=== PATIENT | male | born 1950 | race Caucasian/White ===

== ENCOUNTER 2017-12-29 21:16 | Inpatient (IN) | payer OTHER ==
[~2017-12-29] VITALS: Ht 170.2 cm; Wt 103.6 kg
[~2017-12-29 21:16] MED LIST: AMLO5 PO; ASPI325 PO; CETI10 PO; CLOP75 PO; Cleocin HCl150 MG PO; DIPH50 PO; IBUP400 PO; INSULANI SC; INSULANPEN SQ; LOSHYD100 PO; METO50 PO; NYST100SU SS; OXYACE5T PO; PIOG15 PO; PRED10 PO; SULF10OPSA OD
[2017-12-29] MEDS ORDERED: BASAGLAR K100 UNIT/1 SC (21:23)
[2017-12-29 21:46] LABS: BASOPHILS ABSOLUTE AUTO 0.09 K/mm3 (0.00-0.23); BASOPHILS PERCENT AUTO 1 % (0-2); EOSINOPHILS ABSOLUTE AUTO 0.18 K/mm3 (0.00-0.68); EOSINOPHILS PERCENT AUTO 2 % (0-6); Hematocrit 46.7 % (37.0-53.0); Hemoglobin 16.4 g/dL (13.5-17.5); IMMATURE GRAN ABSOLUTE AUTO 0.04 K/mm3 (0.00-0.10); IMMATURE GRAN PERCENT AUTO 0 % (0-1); LYMPHOCYTES ABSOLUTE AUTO 3.36 K/mm3 (0.84-5.20); LYMPHOCYTES PERCENT AUTO 33 % (21-46); MONOCYTES ABSOLUTE AUTO 1.46 K/mm3 (0.16-1.47); MONOCYTES PERCENT AUTO 14 % (4-13); Mean Corpuscular HGB 31.7 pg (26.0-34.0); Mean Corpuscular HGB Conc 35.1 g/dL (31.5-36.5); Mean Corpuscular Volume 90 fL (80-100); Mean Platelet Volume 11.2 fL (9.1-12.4); NEUTROPHILS ABSOLUTE AUTO 5.13 K/mm3 (1.96-9.15); NEUTROPHILS PERCENT AUTO 50 % (41-73); Platelet Count 242 K/mm3 (150-400); RDW Coefficient Variation 12.9 % (11.7-14.2); RDW Standard Deviation 42.9 fL (35.1-46.3); Red Blood Cell Count 5.17 M/mm3 (4.30-5.90); White Blood Cell Count 10.26 K/mm3 (4.00-11.30)
[2017-12-29 21:55] LABS: Calcium, Ionized (POC) 0.96 mmol/L (1.10-1.46); Chloride (POC) 95 mmol/L (98-108); Glucose (ISTAT POC) 223 mg/dL (70-99); Hemoglobin (POC) 15.6 g/dL (13.5-17.5); Sodium (POC) 146 mmol/L (135-148); Total CO2 (POC) 38 mmol/L (21-32)
[2017-12-29 22:08] LABS: Alanine Aminotransfer (ALT/SGP 36 U/L (12-78); Albumin, Blood 3.1 g/dL (3.4-5.0); Albumin/Globulin Ratio 0.8 (0.8-1.8); Alk Phos 65 U/L (50-136); Anion Gap 7 mmol/L (6-16); Aspartate Aminotrans (AST/SGOT 17 U/L (12-37); Bilirubin, Total 0.4 mg/dL (0.1-1.0); Blood Urea Nitrogen 17 mg/dL (8-24); Bun/Creatinine Ratio 21.4 (12.0-20.0); CO2, Blood 36 mmol/L (21-32); Calcium, Blood 8.3 mg/dL (8.5-10.1); Chloride, Blood 101 mmol/L (98-108); Globulin, Blood 3.9 g/dL (2.2-4.0); Glomerular Filtration Rate >60 (60-); Glucose, Blood 222 mg/dL (70-99); Potassium, Blood 3.2 mmol/L (3.5-5.5); Sodium, Blood 144 mmol/L (136-145); Troponin I 0.178 ng/mL (0.000-0.040)
[2017-12-29 22:26] LABS: International Normalized Ratio 0.96
[2017-12-29] MEDS ORDERED: ASPI81CH PO (23:54)
[2017-12-30 00:57] LABS: Source, Urine Clean Catch
[2017-12-30 01:01] LABS: Bilirubin, Urine Neg (Neg); Blood, Urine Neg (Neg); Glucose Qualitative, Urine 2+ (Neg); Ketones, Urine Neg (Neg); Leukocyte Esterase, Urine Neg (Neg); Nitrite, Urine Neg (Neg); Protein, Urine 3+ (Neg); Specific Gravity, Urine 1.015 (1.003-1.022); Urobilinogen, Urine NORM (Normal)
[2017-12-30 01:45] LABS: Appearance, Urine Clear (Clear); Color, Urine Pale Yellow (P-Yellow)
[2017-12-30 01:46] LABS: Bacteria Not Seen /hpf; Red Blood Cells, Urine 0-2 /hpf (0-2); Squamous Epithelial Cells Not Seen /hpf (Few); White Blood Cells, Urine 0-2 /hpf (0-5)
[2017-12-30 02:26] LABS: Hematocrit 45.3 % (37.0-53.0); Hemoglobin 15.8 g/dL (13.5-17.5); Mean Corpuscular HGB 31.4 pg (26.0-34.0); Mean Corpuscular HGB Conc 34.9 g/dL (31.5-36.5); Mean Corpuscular Volume 90 fL (80-100); Mean Platelet Volume 11.1 fL (9.1-12.4); Platelet Count 223 K/mm3 (150-400); RDW Standard Deviation 42.9 fL (35.1-46.3); Red Blood Cell Count 5.03 M/mm3 (4.30-5.90); White Blood Cell Count 12.66 K/mm3 (4.00-11.30)
[2017-12-30 02:46] LABS: Anion Gap 5 mmol/L (6-16); Blood Urea Nitrogen 14 mg/dL (8-24); Bun/Creatinine Ratio 16.9 (12.0-20.0); CHOL/HDL RATIO 3.4; CO2, Blood 35 mmol/L (21-32); CPK Creatine Kinase 202 U/L (39-308); Calcium, Blood 7.9 mg/dL (8.5-10.1); Chloride, Blood 105 mmol/L (98-108); Cholesterol 148 mg/dL (50-200); Creatine Kinase MB 23.1 ng/mL (0.0-3.6); Creatine Kinase MB Index 11.4 (0.0-4.0); Creatinine, Blood 0.83 mg/dL (0.60-1.20); Glomerular Filtration Rate >60 (60-); Glucose, Blood 112 mg/dL (70-99); HDL Cholesterol 44 mg/dL (>39); LDL/HDL RATIO 1.6; Low Density Lipoprotein Chol 69 mg/dL (0-110); Potassium, Blood 2.9 mmol/L (3.5-5.5); Sodium, Blood 145 mmol/L (136-145); Triglycerides 173 mg/dL (30-160); Very Low Density Lipoprot Chol 34 mg/dL (6-32)
[2017-12-30] MEDS ORDERED: ATOR40TA PO (10:46)
[2017-12-30] MEDS ORDERED: LISI20 PO (10:47)
[2017-12-30] MEDS ORDERED: METO25 PO (10:48)
[2017-12-30] MEDS ORDERED: Micro-K10 MEQ PO (10:49)
[2017-12-30] MEDS ORDERED: TICA90TA PO (10:50)
[2017-12-30] MEDS ORDERED: NITR.4SL SL (10:51)
== END 2017-12-30 10:40 | disposition home or self-care (01) | DRG 247 ==
LOC: ER 21:16 → ICUW 22:10
PROVIDERS: Emergency Medicine; Internal Medicine Cardiovascular Disease
PROC: 027034Z Dilation of Coronary Artery, One Artery with Drug-eluting Intraluminal Device, Percutaneous Approach (ICD-10-PCS; principal; 2017-12-29)
PROC: 4A023N7 Measurement of Cardiac Sampling and Pressure, Left Heart, Percutaneous Approach (ICD-10-PCS; 2017-12-29)
PROC: B2151ZZ Fluoroscopy of Left Heart using Low Osmolar Contrast (ICD-10-PCS; 2017-12-29)
PROC: B2111ZZ Fluoroscopy of Multiple Coronary Arteries using Low Osmolar Contrast (ICD-10-PCS; 2017-12-29)
DX: I21.09 ST elevation (STEMI) myocardial infarction involving other coronary artery of anterior wall (principal); D64.9 Anemia, unspecified; E11.9 Type 2 diabetes mellitus without complications; F17.210 Nicotine dependence, cigarettes, uncomplicated; E87.6 Hypokalemia; I10 Essential (primary) hypertension; Z79.4 Long term (current) use of insulin; Z79.82 Long term (current) use of aspirin; Z88.5 Allergy status to narcotic agent; Z88.0 Allergy status to penicillin
CPT/HCPCS: 36415; 71045; 80047; 80048; 80053; 80061; 81001; 82330; 82550; 82553; 82947; 83036; 83690; 84484; 85014; 85025; 85027; 85347; 85610; 85730; 93005; 93010; 93306; 93454; 99152; 99153; 99285; C1725; C1769; C1874; C9606; J0360; J0610; J1644; J1650; J1815; J2001; J2250; J3010; J3480; J7030; Q9957; Q9967

== ENCOUNTER 2018-01-02 08:19 | Inpatient (IN) | payer OTHER ==
[~2018-01-02] VITALS: Ht 172.7 cm; Wt 103.7 kg
[~2018-01-02 08:19] MED LIST changes: +ASPI81CH PO; +ATOR40TA PO; +BASAGLAR K100 UNIT/1 SC; +LISI20 PO; +METO25 PO; +Micro-K10 MEQ PO; +NITR.4SL SL; +TICA90TA PO
[2018-01-02 08:46] LABS: BASOPHILS ABSOLUTE AUTO 0.07 K/mm3 (0.00-0.23); BASOPHILS PERCENT AUTO 1 % (0-2); EOSINOPHILS ABSOLUTE AUTO 0.31 K/mm3 (0.00-0.68); EOSINOPHILS PERCENT AUTO 2 % (0-6); Hematocrit 48.1 % (37.0-53.0); Hemoglobin 16.9 g/dL (13.5-17.5); IMMATURE GRAN PERCENT AUTO 1 % (0-1); LYMPHOCYTES ABSOLUTE AUTO 1.58 K/mm3 (0.84-5.20); LYMPHOCYTES PERCENT AUTO 11 % (21-46); MONOCYTES ABSOLUTE AUTO 1.66 K/mm3 (0.16-1.47); MONOCYTES PERCENT AUTO 11 % (4-13); Mean Corpuscular HGB 31.8 pg (26.0-34.0); Mean Corpuscular HGB Conc 35.1 g/dL (31.5-36.5); Mean Corpuscular Volume 91 fL (80-100); Mean Platelet Volume 11.6 fL (9.1-12.4); NEUTROPHILS ABSOLUTE AUTO 11.11 K/mm3 (1.96-9.15); NEUTROPHILS PERCENT AUTO 75 % (41-73); Platelet Count 240 K/mm3 (150-400); RDW Coefficient Variation 13.1 % (11.7-14.2); RDW Standard Deviation 43.3 fL (35.1-46.3); Red Blood Cell Count 5.31 M/mm3 (4.30-5.90); White Blood Cell Count 14.83 K/mm3 (4.00-11.30)
[2018-01-02 09:00] LABS: International Normalized Ratio 0.99; Prothrombin Time Results 10.3 Sec (9.7-11.5)
[2018-01-02 09:05] LABS: Alanine Aminotransfer (ALT/SGP 31 U/L (12-78); Albumin/Globulin Ratio 0.7 (0.8-1.8); Alk Phos 68 U/L (50-136); Anion Gap 7 mmol/L (6-16); Aspartate Aminotrans (AST/SGOT 18 U/L (12-37); Bilirubin, Total 0.7 mg/dL (0.1-1.0); Blood Urea Nitrogen 15 mg/dL (8-24); CO2, Blood 28 mmol/L (21-32); Calcium, Blood 9.1 mg/dL (8.5-10.1); Chloride, Blood 109 mmol/L (98-108); Creatinine, Blood 1.07 mg/dL (0.60-1.20); Globulin, Blood 4.1 g/dL (2.2-4.0); Glomerular Filtration Rate >60 (60-); Glucose, Blood 146 mg/dL (70-99); Potassium, Blood 3.9 mmol/L (3.5-5.5); Sodium, Blood 144 mmol/L (136-145); Total Protein, Blood 7.1 g/dL (6.4-8.2)
[2018-01-03 04:17] LABS: BASOPHILS ABSOLUTE AUTO 0.05 K/mm3 (0.00-0.23); BASOPHILS PERCENT AUTO 0 % (0-2); EOSINOPHILS ABSOLUTE AUTO 0.21 K/mm3 (0.00-0.68); EOSINOPHILS PERCENT AUTO 2 % (0-6); Hematocrit 40.1 % (37.0-53.0); Hemoglobin 13.7 g/dL (13.5-17.5); IMMATURE GRAN ABSOLUTE AUTO 0.07 K/mm3 (0.00-0.10); IMMATURE GRAN PERCENT AUTO 1 % (0-1); LYMPHOCYTES ABSOLUTE AUTO 2.05 K/mm3 (0.84-5.20); LYMPHOCYTES PERCENT AUTO 17 % (21-46); MONOCYTES ABSOLUTE AUTO 1.91 K/mm3 (0.16-1.47); MONOCYTES PERCENT AUTO 16 % (4-13); Mean Corpuscular HGB 31.4 pg (26.0-34.0); Mean Corpuscular HGB Conc 34.2 g/dL (31.5-36.5); Mean Corpuscular Volume 92 fL (80-100); Mean Platelet Volume 11.9 fL (9.1-12.4); NEUTROPHILS ABSOLUTE AUTO 7.83 K/mm3 (1.96-9.15); NEUTROPHILS PERCENT AUTO 65 % (41-73); Platelet Count 227 K/mm3 (150-400); RDW Coefficient Variation 13.1 % (11.7-14.2); RDW Standard Deviation 44.1 fL (35.1-46.3); Red Blood Cell Count 4.36 M/mm3 (4.30-5.90); White Blood Cell Count 12.12 K/mm3 (4.00-11.30)
[2018-01-03 04:48] LABS: Anion Gap 9 mmol/L (6-16); Blood Urea Nitrogen 14 mg/dL (8-24); Bun/Creatinine Ratio 16.5 (12.0-20.0); CO2, Blood 24 mmol/L (21-32); Calcium, Blood 7.7 mg/dL (8.5-10.1); Chloride, Blood 108 mmol/L (98-108); Creatinine, Blood 0.85 mg/dL (0.60-1.20); Glomerular Filtration Rate >60 (60-); Glucose, Blood 107 mg/dL (70-99); Potassium, Blood 3.5 mmol/L (3.5-5.5); Sodium, Blood 141 mmol/L (136-145)
[2018-01-04] MEDS ORDERED: ASPI325 PO (08:11)
[2018-01-04] MEDS ORDERED: CLOP75 PO (08:11)
== END 2018-01-04 08:31 | disposition home or self-care (01) | DRG 246 ==
LOC: ER 08:19 → ICUW 08:53 → ICUE 08:53 → PCU 01-03 16:52
PROVIDERS: Emergency Medicine; Internal Medicine Interventional Cardiology
PROC: 027034Z Dilation of Coronary Artery, One Artery with Drug-eluting Intraluminal Device, Percutaneous Approach (ICD-10-PCS; principal; 2018-01-02)
PROC: 02703ZZ Dilation of Coronary Artery, One Artery, Percutaneous Approach (ICD-10-PCS; principal; 2018-01-02)
PROC: 4A023N7 Measurement of Cardiac Sampling and Pressure, Left Heart, Percutaneous Approach (ICD-10-PCS; principal; 2018-01-02)
DX: T82.855A Stenosis of coronary artery stent, initial encounter (principal); I21.09 ST elevation (STEMI) myocardial infarction involving other coronary artery of anterior wall; I22.0 Subsequent ST elevation (STEMI) myocardial infarction of anterior wall; F17.210 Nicotine dependence, cigarettes, uncomplicated; I25.10 Atherosclerotic heart disease of native coronary artery without angina pectoris; Z91.19 Patient's noncompliance with other medical treatment and regimen; E11.9 Type 2 diabetes mellitus without complications; I10 Essential (primary) hypertension; E78.5 Hyperlipidemia, unspecified; Z79.4 Long term (current) use of insulin; Z88.0 Allergy status to penicillin
CPT/HCPCS: 36415; 80048; 80053; 82947; 83880; 84484; 85025; 85347; 85610; 92941; 92978; 93005; 93010; 93458; 96374; 99152; 99153; 99285; C1725; C1753; C1769; C1874; C1887; C1894; C8929; C9600; J1644; J1815; J2250; J2405; J3010; J3246; J7030; Q9957; Q9967

== ENCOUNTER 2019-01-13 05:46 | Inpatient (IN) | payer OTHER ==
[~2019-01-13] VITALS: Ht 170.2 cm; Wt 102.9 kg
[2019-01-13 06:11] LABS: BASOPHILS ABSOLUTE AUTO 0.06 K/mm3 (0.00-0.23); BASOPHILS PERCENT AUTO 0 % (0-2); EOSINOPHILS ABSOLUTE AUTO 0.03 K/mm3 (0.00-0.68); EOSINOPHILS PERCENT AUTO 0 % (0-6); Hemoglobin 15.3 g/dL (13.5-17.5); IMMATURE GRAN ABSOLUTE AUTO 0.43 K/mm3 (0.00-0.10); IMMATURE GRAN PERCENT AUTO 2 % (0-1); LYMPHOCYTES ABSOLUTE AUTO 0.64 K/mm3 (0.84-5.20); LYMPHOCYTES PERCENT AUTO 3 % (21-46); MONOCYTES PERCENT AUTO 13 % (4-13); Mean Corpuscular HGB 31.7 pg (26.0-34.0); Mean Corpuscular HGB Conc 34.8 g/dL (31.5-36.5); Mean Corpuscular Volume 91 fL (80-100); Mean Platelet Volume 11.7 fL (9.1-12.4); NEUTROPHILS ABSOLUTE AUTO 17.14 K/mm3 (1.96-9.15); NEUTROPHILS PERCENT AUTO 82 % (41-73); Platelet Count 196 K/mm3 (150-400); RDW Coefficient Variation 12.9 % (11.7-14.2); Red Blood Cell Count 4.83 M/mm3 (4.30-5.90)
[2019-01-13 06:25] LABS: Albumin, Blood 2.4 g/dL (3.4-5.0); Albumin/Globulin Ratio 0.6 (0.8-1.8); Bilirubin, Total 0.9 mg/dL (0.1-1.0); Bun/Creatinine Ratio 12.3 (12.0-20.0); Calcium, Blood 8.4 mg/dL (8.5-10.1); Creatinine, Blood 1.54 mg/dL (0.60-1.20); Globulin, Blood 4.1 g/dL (2.2-4.0); Potassium, Blood 3.9 mmol/L (3.5-5.5); Total Protein, Blood 6.5 g/dL (6.4-8.2); Troponin I 0.087 ng/mL (0.000-0.040)
[2019-01-13] MEDS ORDERED: INSULANPEN (07:18)
[2019-01-13] MEDS ORDERED: ATOR40TA PO (07:18)
[2019-01-13 07:53] LABS: Influenza A Negative (NEGATIVE); Influenza B Negative (NEGATIVE)
--- NOTE | 2019-01-13 14:08 | NUR ---
Permission to access Patient gave this student RN permission to access chart.
--- NOTE | 2019-01-13 18:22 | NUR ---
AT 1500 PATIENT PRESENTED WITH SYMPTOMS OF LOWERED OXYGEN SATURATION AND HIS RESPIRATORY RATE WAS IN THE 30S. PATIENT WAS ASSESSED, LUNGS WERE TIGHT. PATIENT WAS ASSESSED BY RESPIRATORY THERAPY. BREATHING TREATMENT WAS GIVEN TO THE PATIENT AND HE BECAME WHEEZY. PATIENT HAD LACTIC REFLUX DRAWN AND STAT TROPONIN. TROPONIN AND LACTIC CAME BACK ELEVATED AT A CRITICAL HIGH. TROPONIN WAS 3.68 AND LACTIC WAS STILL 3.0 AFTER 5L BOLUSED FLUIDS. PATIENT CONTINUED TO HAVE A RESPIRATION RATE IN THE 40S AND DR. CASAS WAS AGAIN NOTIFIED OF THE PATIENTS CONDITION. HE ORDERED A BIPAP TO REDUCE PATIENTS WORK OF BREATHING, AND A TRANSFER TO PCU. PATIENT WAS GIVEN ICU BED THAT WAS WHAT WAS AVAILABLE. HE WAS ON THE BIPAP AND KEPT HIS SATURATIONS AROUND 96%. WHEN THE BIPAP WAS REMOVED FOR TRANSFER, BEFORE WE COULD PLACE THE NASAL CANNULA THE PATIENTS SATURATIONS DROPPED TO 93%. HE WAS PLACED ON 3L NASAL CANNULA FOR TRANSFER. REPORT HAD BEEN CALLED OT JUANY POPE RN, PATIENT TRANSFERRED BY FRIDA MARIE AND TRUDY CRANE RN. PATIENT SETTLED IN ICU.
--- NOTE | 2019-01-13 19:30 | NUR ---
ARRIVAL NOTE/SUMMARY: PT ARRIVED VIA BED. PT'S FACE IS FLUSHED. RR-40'S RANGE AND LABORED. 02 SATS MID 90% RANGE ON 2L 02 VIA N/C. PT IS ALERT AND ORIENTED, BUT APPEARS GENERALLY UNWELL. PT STATES, "I DON'T KNOW HOW I GOT SO SICK." PT ABLE TO ASSIST WITH SIMPLE TASKS IN BED BUT BECOMES VERY EASILY MORE DYSPNEIC WITH EXERTION. LUNGS ARE CLEAR BUT DIMINISHED IN THE BILATERAL BASES. WET, OCASSIONALLY PRODUCTIVE COUGH. PT SWALLOWS SPUTUM BUT REPORTS IT HAS BEEN YELLOW IN COLOR. HR REGULAR, ST 100-110'S RANGE. BP STABLE AT THIS TIME. TEMP -99.0. KERMIT YATES REPORTS THAT PT HAS CHRONIC DIARRHEA. NO BM AT THIS TIME. -CONTINUE TO FOLLOW TROPONIN, REVIEW HEPARIN RN NOTIFY IF TROPONIN IS >6. -FULL CODE STATUS -PCU STATUS
--- NOTE | 2019-01-13 19:44 | NUR ---
BEDSIDE REPORT FROM JUANY CARMEN. PT A+O, LS RHONCHI C/ EXP WHEEZ TO RUL AND RML. PT ABLE TO RELIEVE SOME RHONCHI WITH COUGH. SKIN FLUSHED AND WARM. PT WITH TACHYPNEA BUT IS ABLE TO TALK FULL SENTENCES. PT STATES HAS BEEN SICK FOR 72 HOURS AND JUST WANTS TO SLEEP, HOWEVER, IS ENJOYING TELLING STORIES ABOUT HIS LIFE WITH HIS DAD AND LIVING IN [place]. GIVING PT TIME TO TALK. OTHERWISE PT PLEASANT AND COOPERATIVE. PT STATES WILL NOT WEAR ANY MASK TONIGHT BUT WILLING TO WEAR NASAL CANULA. WILL CONTINUE TO MONITOR. CALL LIGHT WITHIN REACH.
--- NOTE | 2019-01-14 03:00 | NUR ---
PT CALM AND COOPERATIVE T/O SHIFT. PT INITIALLY REFUSED BREATHING TREATMENT AND SOLU-MEDROL BUT AFTER DEVELOPING INCREASED SOB AND EXP WHEEZE WHEN UP TO BEDSIDE COMMODE, PT AGREED TO TAKE MEDICATION AND TREATMENT. PT CURRENTLY RESTING QUIETLY WITH LESS EFFORT IN BREATHING AND NO AUDIBLE WHEEZING NOTED, SATS 93-97%. PT AWAKENS EASILY TO RN AT BEDSIDE. USES CALL LIGHT APPROPRIATELY.
[2019-01-14 04:21] LABS: BASOPHILS ABSOLUTE AUTO 0.08 K/mm3 (0.00-0.23); BASOPHILS PERCENT AUTO 0 % (0-2); EOSINOPHILS ABSOLUTE AUTO 0.08 K/mm3 (0.00-0.68); EOSINOPHILS PERCENT AUTO 0 % (0-6); IMMATURE GRAN ABSOLUTE AUTO 0.63 K/mm3 (0.00-0.10); IMMATURE GRAN PERCENT AUTO 3 % (0-1); LYMPHOCYTES PERCENT AUTO 3 % (21-46); MONOCYTES ABSOLUTE AUTO 1.54 K/mm3 (0.16-1.47); MONOCYTES PERCENT AUTO 7 % (4-13); Mean Corpuscular HGB 31.3 pg (26.0-34.0); Mean Corpuscular HGB Conc 34.1 g/dL (31.5-36.5); Mean Corpuscular Volume 92 fL (80-100); Mean Platelet Volume 11.5 fL (9.1-12.4); NEUTROPHILS ABSOLUTE AUTO 18.36 K/mm3 (1.96-9.15); NEUTROPHILS PERCENT AUTO 86 % (41-73); Platelet Count 178 K/mm3 (150-400); RDW Coefficient Variation 12.9 % (11.7-14.2); RDW Standard Deviation 43.5 fL (35.1-46.3); Red Blood Cell Count 4.47 M/mm3 (4.30-5.90); White Blood Cell Count 21.39 K/mm3 (4.00-11.30)
[2019-01-14 04:51] LABS: Anion Gap 11 mmol/L (6-16); Blood Urea Nitrogen 23 mg/dL (8-24); Bun/Creatinine Ratio 20.4 (12.0-20.0); CO2, Blood 19 mmol/L (21-32); Calcium, Blood 8.3 mg/dL (8.5-10.1); Chloride, Blood 104 mmol/L (98-108); Creatinine, Blood 1.13 mg/dL (0.60-1.20); Glomerular Filtration Rate >60 (60-); Glucose, Blood 269 mg/dL (70-99); Potassium, Blood 3.9 mmol/L (3.5-5.5); Sodium, Blood 134 mmol/L (136-145)
--- NOTE | 2019-01-14 07:30 | NUR ---
ASSUMED CARE OF PATIENT; SEE ASSESSMENT CHARTING FOR DETAILS. PATIENT GRUFF BUT COOPERATIVE; DENIES ANY DISCOMFORT. STATES HE IS FEELING MUCH BETTER AND WANTING TO GO HOME. RN REMINDED PATIENT THAT HE IS RECEIVING IV ANTIBIOTIC TX WELL IV STEROIDS PER TREATMENT OF INFECTION AND RESP. DISTRESS. CALMED DOWN A LITTLE AND SAID "MAYBE TOMORROW". LUNGS COARSE BUT CLEAR WITH CDB. OXYGEN AT 1-1/2 TO 2L/MIN VIA NC; 100% BIOX. READING. UP TO BSC WITH ASSIST.; VOIDING AND STOOLING AT SAME TIME, USUALLY. MONITOR NSR AND VSS; AFEBRILE.
--- NOTE | 2019-01-14 08:40 | NUR ---
DR. CASAS HERE (HOSPITALIST); ORDERED REPEAT TROPONIN AND IF READING HAS DROPPED PATIENT CAN BE CHANGED TO MED. FLOOR, WITH TELEMETRY.
--- NOTE | 2019-01-14 09:30 | NUR ---
ECHOCARDIOGRAM TECH. (BILL) HERE TO DO ECHO. ON PATIENT.
--- NOTE | 2019-01-14 09:57 | NUR ---
Echocardiogram completed.
--- NOTE | 2019-01-14 15:30 | NUR ---
WANTS TO GO AMA TODAY; WANTS TO TALK TO THE DOCTOR.
--- NOTE | 2019-01-14 15:50 | NUR ---
DR. TAMEZ HERE; INFORMED PATIENT HE WILL NEED TO STAY AT LEAST TIL TOMORROW. PATIENT OKAY WITH STAYING TODAY BUT WANTS TO LEAVE BY NOON TOMORROW. PHYSICIAN EXPLAINED THIS IS NOT A NURSING HOME; BUT IF PATIENT CHOOSES TO LEAVE TOMORROW AND PHYSICIAN FEELS IT IS TOO SOON, PATIENT WILL NEED TO SIGN A PAPER RE: LEAVING AMA; PATIENT V/U.
--- NOTE | 2019-01-14 16:15 | NUR ---
PATIENT USED HIS CELL PHONE AND CALLED THE STATE POLICE; INQUIRED WHEN THE INTERSTATE (I-5) WOULD BE SAFE TO TRAVEL ON AND REOPENED; OFFICER INFORMED PATIENT THAT DRIVING IS DANGEROUS AND HE DOES NOT KNOW WHEN THE ROADS AND WEATHER WILL IMPROVE. PATIENT PROCEEDED TO INFORM RN RE: CONVERSATION AND STATED HE WILL AGREE TO STAY TOMORROW BECAUSE THERE IS NO WAY HE CAN MAKE IT HOME OR GET A FAMILY RIDE.
--- NOTE | 2019-01-14 18:30 | NUR ---
SUMMARY: REMAINS ON RA; BIOX. STAY >95%. DANGLING AND GETTING UP TO TOILET AND BSC WITHOUT ASSIST. LESS DYSPNEIC WITH EXERTION. CBG READINGS IN THE 300'S AND REQUIRING 12U NOVOLOG PER [employer] COVERAGE. WILL RECEIVE HS LANTUS.
--- NOTE | 2019-01-14 19:15 | NUR ---
[place] of Care: Patient alert and oriented, sitting on side of bed, eating dinner. Denies pain, discomfort, SOB, or dyspnea. VSS, O2-96% on RA. Peripheral IV x1 patent and intact, SL. Transfers self to bedside commode without difficulty. Call light in reach, makes needs known. Pleasant and cooperative with staff. Will continue to monitor for pain, comfort, safety.
[2019-01-15 01:40] LABS: Vancomycin, Trough 9.9 ug/mL (5.0-10.0)
--- NOTE | 2019-01-15 06:33 | NUR ---
Shift Summary: Slept on/off throughout shift, remains oriented X4. continues to deny pain, discomfort, SOB, or dyspnea. Mostly calm and cooperative with staff. x1 episode where patient refused medications, stating that he thought staff was "playing games", "up to no good", "making him nervous", also appeared slightly confused and paranoid, possibly PTSD symptoms (r/t [place] war). This episode resolved by talking with patient, verbal re-assurance. Remained calm and cooperative with staff for remainder of shift. VSS, but BP noted to be elevated 180's-190's late this shift. Received order per Dr. Mendoza for prn Hydralazine 10mg IV q6, first dose given at approx 0615, effectively decreased systolic to 140's. Voiding using bedside commode without difficulty. Will continue to monitor until report to day shift RN.
--- NOTE | 2019-01-15 07:29 | NUR ---
ASSUMED CARE: PT RESTING QUIETLY AT THIS TIME. NO ACUTE NEEDS OR CONCERNS AT THIS TIME.
--- NOTE | 2019-01-15 18:12 | NUR ---
SHIFT SUMMARY: PT SITTING UP AT SIDE OF THE BED THIS SHIFT. HE IS ALERT AND ORIENTED, MAKING NEEDS KNOWN. ON ROOM AIR, STATES HE FEELS EXHAUSTED. VISITED ONCE TODAY. STATES OUR FOOD MAKES HIM NAUSEATED AND THAT HIS STOMACH HAS BEEN SENSITIVE SINCE CHILDHOOD. DIETITIAN CAME IN AND DISCUSSED OPTIONS WITH HIM. NO ACUTE CHANGES THIS SHIFT. DC PLAN FOR TOMORROW. NO FURTHER CHANGES OR CONCERNS THIS SHIFT.
--- NOTE | 2019-01-15 19:20 | NUR ---
ASSUME CARE: REPORT RECIEVED FROM SIERRA RN , OFF GOING RN. MONITOR INTACT SHOWING HEART RATE 70'S. DENIES DISCOMFORT LUNG SOUNDS COARSE THROUGHOUT. RESPIRATIONS REGULAR AND EASY ON ROOM AIR. SPOT CHECK SPO2 94-96% OCC COUGH. ABDOMEN SOFT WITH BOWEL SOUNDS FOUR QUAD. VOIDS RUBIA URINE. CONTINUE TO MONITOR AND REPORT CHANGE IN PATIENT CONDITION.
--- NOTE | 2019-01-16 04:34 | NUR ---
MEDICATED WITH HYDRALIZE 10MG IV FOR INCREASED BLOOD PRESSURE. SITTING ON EDGE OF BED.WATCHES TV DRINKING WATER WATCHING IT SNOW
--- NOTE | 2019-01-16 06:09 | NUR ---
SHIFT SUMMARY: RESTS QUIETLY WHEN UNDISTURBED. MONITOR INTACT SHOWING HEART RATE 60'S-70'S. LUNG SOUNDS REMAIN COARSE WITH OCC COUGH. ABDOMEN SOFT WITH BOWEL SOUNDS FOUR QUADS. VOIDS RUBIA URINE PER URINAL. REPSITIONS SELF IN BED. NO EDEMA NOTED SKIN W/D/I. PEDAL PULSES PRESENT. CONTINUE TO MONITOR AND REPORT CHANGE IN PATIENT CONDITION. VERBALIZES ANTICIPATION OF DISCHARGE THIS AM. REQUEST MILK AND COFFEE DURING NOC TOLERATES WELL
--- NOTE | 2019-01-16 07:40 | NUR ---
Recieced report from Ginger CARMEN. Patient sitting up on bedside looking out window. He seems to be agitated about being here and states he is going home this am, but no DrRajani has been by. He is on RA and sats mid 90's. He has 20ga RFA dressing intact and site WNL's and is flushed and SL. He denies any current pain that needs intervention. He has own coffe at bedside and he states that satisfies him.
--- NOTE | 2019-01-16 09:47 | NUR ---
Dr Thompson has been by to assess patient and he will be going home. Currently we are waiting for discharge orders for him to go. He has removed all leads and has gotten dressed and is sitting in chair with at bedside. he is in better mood and is very interactive now that he is going home.
--- NOTE | 2019-01-16 10:43 | NUR ---
Patient went home AMA r/t not wanting to wait any longer for to write orders. I have made several calls to Dr Thompson and he is too busy over the calls to write orders. IV pulled intact and AMA papers signed. He was taken out in wheelchair. While writing this note Dr Thompson wrote discharge orders and call patient with sc ripts.
[2019-01-16] MEDS ORDERED: ATOR40TA PO (11:00)
[2019-01-16] MEDS ORDERED: LEVO750 PO (11:02)
[2019-01-16] MEDS ORDERED: DELTASONE20 MG PO (11:07)
[2019-01-16] MEDS ORDERED: ALBU90OI6 INH (11:09)
--- NOTE | 2019-01-16 11:23 | NUR ---
PATIENT WANTED TO GO AMA JOE HE LEFT AT 1030 AND MEDS WERE CALLED IN TO [facility]. CALL PATIENTS AND REVIEWED MEDS AND NEW SCRIPTS AND SHE RETURNED UNDERSTANDING OF ALL INFORMATION
== END 2019-01-16 10:31 | disposition home or self-care (01) | DRG 871 ==
LOC: ER 05:46 → ERHOLD 07:58 → MEDS 09:53 → ICUW 17:33
PROVIDERS: Emergency Medicine; ADMIT Hospitalist
DX: A41.9 Sepsis, unspecified organism (principal); J18.9 Pneumonia, unspecified organism; I47.1 Supraventricular tachycardia; R65.20 Severe sepsis without septic shock; I25.10 Atherosclerotic heart disease of native coronary artery without angina pectoris; E11.69 Type 2 diabetes mellitus with other specified complication; E66.9 Obesity, unspecified; J45.909 Unspecified asthma, uncomplicated; I10 Essential (primary) hypertension; E78.5 Hyperlipidemia, unspecified; F17.210 Nicotine dependence, cigarettes, uncomplicated; W19.XXXA Unspecified fall, initial encounter; Z91.14 Patient's other noncompliance with medication regimen; Z88.5 Allergy status to narcotic agent; Z88.0 Allergy status to penicillin; Z79.4 Long term (current) use of insulin; Z79.02 Long term (current) use of antithrombotics/antiplatelets; Z79.82 Long term (current) use of aspirin; Z79.899 Other long term (current) drug therapy
CPT/HCPCS: 36415; 71046; 80048; 80053; 80202; 82947; 83605; 83690; 83880; 84484; 85025; 87804; 93005; 93010; 93306; 94640; 94660; 96361; 96365; 97116; 97161; 99285-25; J0360; J1650; J1956; J2930; J3370; J7030; J7050; J7120

== ENCOUNTER → 2021-09-22 | Outpatient (CLI) | payer MEDICARE, OTHER ==
[~2021-09-22] MED LIST changes: +ALBU90OI6 INH; +DELTASONE20 MG PO; +INSULANPEN; +LEVO750 PO
== END | disposition home or self-care (01) ==
LOC: LAB 13:12 → LAB SHORT 13:12
DX: L57.0 Actinic keratosis (principal)
CPT/HCPCS: 88305

== ENCOUNTER 2023-04-26 10:09 | Emergency (ER) | payer MEDICARE, OTHER ==
[~2023-04-26] VITALS: Ht 170.2 cm; Wt 98.4 kg
[2023-04-26 10:17] VITALS: BP 190/82
== END 2023-04-26 11:00 | disposition left against medical advice (07) ==
LOC: ER 10:09
DX: I21.4 Non-ST elevation (NSTEMI) myocardial infarction (principal); R79.89 Other specified abnormal findings of blood chemistry; R94.31 Abnormal electrocardiogram [ECG] [EKG]; I10 Essential (primary) hypertension; I25.10 Atherosclerotic heart disease of native coronary artery without angina pectoris; E11.9 Type 2 diabetes mellitus without complications; F17.210 Nicotine dependence, cigarettes, uncomplicated; Z88.0 Allergy status to penicillin; Z88.5 Allergy status to narcotic agent; Z79.4 Long term (current) use of insulin; Z79.02 Long term (current) use of antithrombotics/antiplatelets; Z79.82 Long term (current) use of aspirin; Z79.52 Long term (current) use of systemic steroids; Z79.899 Other long term (current) drug therapy
CPT/HCPCS: 99284; J7030

== ENCOUNTER → 2023-04-26 | Outpatient (CLI) | payer MEDICARE, OTHER ==
[2023-04-26 09:21] LABS: BASOPHILS ABSOLUTE AUTO 0.08 K/mm3 (0.00-0.23); BASOPHILS PERCENT AUTO 1 % (0-2); EOSINOPHILS ABSOLUTE AUTO 0.15 K/mm3 (0.00-0.68); EOSINOPHILS PERCENT AUTO 1 % (0-6); Hematocrit 46.2 % (37.0-53.0); Hemoglobin 16.3 g/dL (13.5-17.5); IMMATURE GRAN ABSOLUTE AUTO 0.13 K/mm3 (0.00-0.10); IMMATURE GRAN PERCENT AUTO 1 % (0-1); LYMPHOCYTES ABSOLUTE AUTO 1.65 K/mm3 (0.84-5.20); LYMPHOCYTES PERCENT AUTO 12 % (21-46); MONOCYTES ABSOLUTE AUTO 1.55 K/mm3 (0.16-1.47); MONOCYTES PERCENT AUTO 11 % (4-13); Mean Corpuscular HGB 31.8 pg (26.0-34.0); Mean Corpuscular HGB Conc 35.3 g/dL (31.5-36.5); Mean Corpuscular Volume 90 fL (80-100); Mean Platelet Volume 10.3 fL (9.1-12.4); NEUTROPHILS ABSOLUTE AUTO 10.54 K/mm3 (1.96-9.15); NEUTROPHILS PERCENT AUTO 75 % (41-73); Platelet Count 293 K/mm3 (150-400); RDW Coefficient Variation 13.4 % (11.7-14.2); RDW Standard Deviation 44.3 fL (35.1-46.3); Red Blood Cell Count 5.13 M/mm3 (4.30-5.90)
[2023-04-26 09:32] LABS: Albumin, Blood 2.9 g/dL (3.4-5.0); Albumin/Globulin Ratio 0.7 (0.8-1.8); Bilirubin, Total 0.3 mg/dL (0.1-1.0); Bun/Creatinine Ratio 19.4 (12.0-20.0); Calcium, Blood 9.3 mg/dL (8.5-10.1); Creatinine, Blood 1.34 mg/dL (0.60-1.20); Potassium, Blood 3.8 mmol/L (3.5-5.5); Total Protein, Blood 6.9 g/dL (6.4-8.2)
== END | disposition home or self-care (01) ==
LOC: LAB SHORT 09:16 → LAB 09:16
PROVIDERS: Chiropractor
DX: R06.00 Dyspnea, unspecified (principal); E11.9 Type 2 diabetes mellitus without complications
CPT/HCPCS: 80053; 83036; 83880; 84484; 85025; 85379